=== PATIENT | male | born 1990 | race Caucasian/White ===

== ENCOUNTER 2024-08-16 22:53 | Emergency (ER) | payer OTHER ==
[~2024-08-16] VITALS: Ht 190.5 cm; Wt 99.8 kg
== END 2024-08-17 06:05 | disposition home or self-care (01) ==
LOC: ED 22:53
DX: S39.012A Strain of muscle, fascia and tendon of lower back, initial encounter (principal); S46.912A Strain of unspecified muscle, fascia and tendon at shoulder and upper arm level, left arm, initial encounter; V43.52XA Car driver injured in collision with other type car in traffic accident, initial encounter; Y93.89 Activity, other specified; Y92.410 Unspecified street and highway as the place of occurrence of the external cause; Y99.8 Other external cause status